=== PATIENT | female | born 1995 | race Two or more races ===

== ENCOUNTER 2020-08-10 02:17 | Emergency (ER) | payer MEDICAID, OTHER ==
[~2020-08-10] VITALS: Ht 162.6 cm; Wt 68.9 kg
[2020-08-10 02:39] VITALS: BP 114/78
== END 2020-08-10 03:12 | disposition left against medical advice (07) ==
LOC: ER 02:17
DX: R51.9 Headache, unspecified (principal); Z53.21 Procedure and treatment not carried out due to patient leaving prior to being seen by health care provider